=== PATIENT | female | born 1965 | race Caucasian/White ===

== ENCOUNTER 2018-05-26 17:25 | Inpatient (IN) | payer OTHER ==
[~2018-05-26] VITALS: Ht 157.5 cm; Wt 128.5 kg
[2018-05-26 18:14] LABS: HEMATOCRIT 40.7 % (36.0-46.0); HEMOGLOBIN 13.6 G/DL (11.9-15.5); MCH 28.4 PG (29.0-34.0); MCHC 33.4 G/DL (30.0-36.0); PLATELET COUNT 241 K/uL (156-360); RBC DIS.WIDTH-CV 13.3 % (11.8-14.6); RBC DIS.WIDTH-SD 41.5 % (39-53); RED BLOOD COUNT 4.79 M/uL (3.80-5.20); WHITE BLOOD COUNT 13.1 K/uL (4.1-10.2)
[2018-05-26 18:27] LABS: CHLORIDE 107 mEq/L (99-109); SODIUM 141 mEq/L (136-147)
[2018-05-26 18:29] LABS: GLUCOSE 145 mg/dL (70-99)
[2018-05-26 18:33] LABS: CREATININE 0.9 mg/dL (0.6-1.3); GFR ESTIMATE (CALCULATED) > 59 mL/min/
[2018-05-26 18:34] LABS: UREA NITROGEN (BUN) 14 mg/dL (9-23)
[2018-05-26 20:47] LABS: TROP-I INTERPRETATION NEGATIVE; TROPONIN-I < 0.01 ng/mL (0.0-0.30)
[2018-05-26] MEDS ORDERED: PULMICORT FLE180 MCG IH (22:25)
[2018-05-26] MEDS ORDERED: VENTOLIN HFA18 GM IH (22:26)
[2018-05-26] MEDS ORDERED: INVOKAMET XR 11 EAC1 PO (22:27)
[2018-05-26] MEDS ORDERED: TOPROL XL200 MG PO (22:28)
[2018-05-26] MEDS ORDERED: ZESTRIL40 MG PO (22:29)
[2018-05-26] MEDS ORDERED: ZANTAC150 MG PO (22:30)
[2018-05-26] MEDS ORDERED: TOUJEO SOL300 UNIT/1 SC (22:32)
[2018-05-27] VITALS (7 sets, daily range): BP systolic 130–171; BP diastolic 63–81
[2018-05-27 02:08] LABS: HDL CHOLESTEROL 47 MG/DL (Desirable>=50); LDL CHOLESTEROL 99 mg/dL (Desirable<100); NON-HDL CHOLESTEROL 156 mg/dL (Desirable<160); TOTAL CHOLESTEROL 203 mg/dL (Desirable<200); TRIGLYCERIDES 286 MG/DL (Normal: <150)
[2018-05-28 04:00] VITALS: BP 125/67
[2018-05-28 06:48] LABS: BASOPHIL (%) 0.9 % (0-1); BASOPHIL COUNT 0.1 K/uL (0-0.1); EOSINOPHIL (%) 1.2 % (0-5); EOSINOPHIL COUNT 0.1 K/uL (0-0.3); HEMATOCRIT 40.9 % (36.0-46.0); HEMOGLOBIN 13.2 G/DL (11.9-15.5); IMMATURE GRANULOCYTE (%) 0.2 % (0.0-0.7); LYMPHOCYTE (%) 34.8 % (15-42); LYMPHOCYTE COUNT 3.1 K/uL (1.0-2.8); MCH 27.8 PG (29.0-34.0); MCHC 32.3 G/DL (30.0-36.0); MCV 86.1 FL (83-99); MONOCYTE COUNT 0.5 K/uL (0-0.8); NEUTROPHIL (%) 56.9 % (45-76); NEUTROPHIL COUNT 5.1 K/uL (1.8-6.4); PLATELET COUNT 222 K/uL (156-360); RBC DIS.WIDTH-CV 13.5 % (11.8-14.6); RBC DIS.WIDTH-SD 42.5 % (39-53); RED BLOOD COUNT 4.75 M/uL (3.80-5.20); WHITE BLOOD COUNT 8.9 K/uL (4.1-10.2)
[2018-05-28 07:08] LABS: CHLORIDE 105 MEQ/L (99-109); CREATININE 0.7 MG/DL (0.6-1.3); GFR ESTIMATE (CALCULATED) > 59 mL/min/; GLUCOSE 174 mg/dL (70-99); POTASSIUM 4.8 MEQ/L (3.7-5.4); SODIUM 141 MEQ/L (136-147); UREA NITROGEN (BUN) 12 mg/dL (9-23)
[2018-05-28 07:11] LABS: APPEARANCE CLEAR ((CLEAR)); BILIRUBIN NEGATIVE; BLOOD NEGATIVE; COLOR STRAW ((YELLOW)); GLUCOSE (STRIP) >=500; KETONES NEGATIVE; LEUKOCYTES NEGATIVE; NITRITE NEGATIVE; PROTEIN (STRIP) NEGATIVE; SPECIFIC GRAVITY 1.009 (1.000-1.030); UCUL ADDED? NO; UROBILINOGEN 0.2 MG/DL (0.2-1.0)
[2018-05-28 08:20] VITALS: BP 179/76
[2018-05-28 12:08] LABS: HEMOGLOBIN A1c (GLYCOHEMOGLOB) 8.6 % (Below 5.7)
[2018-05-28 12:38] VITALS: BP 166/79
[2018-05-28] MEDS ORDERED: AMLODIPINE BESY10 MG PO (15:04)
[2018-05-28 16:40] VITALS: BP 164/71
[2018-05-28 19:34] VITALS: BP 152/84
[2018-05-28 23:53] VITALS: BP 100/52
[2018-05-29 03:50] VITALS: BP 140/66
[2018-05-29 08:14] VITALS: BP 157/73
[2018-05-29 11:40] VITALS: BP 143/79
== END 2018-05-29 17:10 | disposition home or self-care (01) | DRG 312 ==
LOC: EME 17:25 → RME 17:25 → EDOF 22:14 → 5SOUTH 22:14 → ENRESERV 22:18 → 5SOUTH 23:53
PROVIDERS: Internal Medicine; Nurse Practitioner Adult Health; Student in an Organized Health Care Education/Training Program
DX: R55 Syncope and collapse (principal); I10 Essential (primary) hypertension; E11.9 Type 2 diabetes mellitus without complications; K21.9 Gastro-esophageal reflux disease without esophagitis; J45.909 Unspecified asthma, uncomplicated; E66.9 Obesity, unspecified; Z68.43 Body mass index [BMI] 50.0-59.9, adult; Z79.4 Long term (current) use of insulin; Z91.81 History of falling
CPT/HCPCS: 70450; 70551; 71046; 73090; 73130; 80048; 80061; 81003; 82948; 83036; 84484; 85025; 85027; 93005; 93306; 93880; 94640; 94799; 99281; 99285; G0378; J1644; J1815; J1885; J7030